=== PATIENT | male | born 1970 | race Caucasian/White ===

== ENCOUNTER → 2018-03-27 | Outpatient (CLI) | payer OTHER ==
--- NOTE | 2018-03-28 19:47 | US ---
EXAMINATION TYPE: US abdomen complete DATE OF EXAM: 03/27/2018 COMPARISON: NONE CLINICAL HISTORY: 47-year-old male R10.9 ABD PAIN. Bloating, abdominal pain, intermittent for 15 year s TECHNIQUE: Multiple sonographic images of the abdomen are obtained. FINDINGS: EXAM MEASUREMENTS: Liver Length: 11.7 cm Gallbladder Wall: 0.2 cm CBD: 0.3 cm Spleen: 11.6 cm Right Kidney: 10.6 x 5.4 x 4.8 cm Left Kidney: 11.0 x 5.2 x 4.5 cm Pancreas: Most of the pancreas is seen and shows no gross abnormality. Liver: Normal size and homogeneous appearance without focal lesion. Gallbladder: multiple non-mobile echogenic nodules measuring up to 7 mm. No abnormal gallbladder dis tention, wall thickening, or pericholecystic fluid. Evidence for sonographic Vegas's sign: no CBD: wnl Spleen: wnl Right Kidney: no evidence of hydronephrosis Left Kidney: no evidence of hydronephrosis Upper IVC: wnl Abd Aorta: wnl IMPRESSION: Multiple nonmobile echogenic nodules along the gallbladder wall measuring up to 7 mm. Suspected gallb ladder wall polyps. Six-month follow-up gallbladder ultrasound recommended.
== END | disposition home or self-care (01) ==
LOC: RADUSWWP 14:43
PROVIDERS: ATTEND Family Medicine
DX: K82.8 Other specified diseases of gallbladder (principal)
CPT/HCPCS: 76700

== ENCOUNTER → 2018-09-21 | Outpatient (CLI) | payer OTHER ==
--- NOTE | 2018-09-21 09:47 | US ---
EXAMINATION TYPE: US abdomen complete DATE OF EXAM: 09/21/2018 COMPARISON: US 2018 CLINICAL HISTORY: 48-year-old male R10.9 ABD Pain. Follow up from previous US TECHNIQUE: Multiple sonographic images of the abdomen were obtained. FINDINGS: EXAM MEASUREMENTS: Liver Length: 14.8 cm Gallbladder Wall: 0.2 cm CBD: 0.3 cm CHD: 0.3 cm Spleen: 10.1 cm Right Kidney: 10.2 x 5.4 x 4.9 cm Left Kidney: 11.5 x 4.9 x 6.0 cm Pancreas: wnl Liver: wnl Gallbladder: Multiple echogenic lesions seen adjacent to wall, nonvascular, largest. Along a junctio nal fold, two echogenic lesions seen with ring down artifact and twinkling artifact, largest measurin g - 0.3 cm. Evidence for sonographic Vegas's sign: neg CBD: wnl CHD: wnl Spleen: wnl Right Kidney: No hydronephrosis. Small extrarenal pelvis is suggested. Left Kidney: No hydronephrosis. Upper IVC: wnl Abd Aorta: wnl IMPRESSION: Multiple gallbladder wall polyps measuring up to 6 mm (versus 7 mm, previously). Some of these show r ingdown artifact suggesting concurrent adenomyomatosis. Continued follow-up can be performed at 6-12 month intervals.
== END | disposition home or self-care (01) ==
LOC: RADUSWWP 06:45
PROVIDERS: ATTEND Family Medicine
DX: K82.4 Cholesterolosis of gallbladder (principal)
CPT/HCPCS: 76700

== ENCOUNTER 2019-05-12 06:26 | Day surgery (SDC) | payer OTHER ==
[2019-05-10 13:28] VITALS: BMI 26.7
--- NOTE | 2019-05-11 19:32 | P.GSHP ---
History of Present Illness H&P Date: 05/11/19 Chief Complaint: chronic cholecystitis 48-year-old male was having some bowel discomfort and underwent an ultrasound in March 2018. Patient describes GI related symptoms for the last 15 years or so. The symptoms include bloating, abdominal discomfort, and frequent diarrhea. He was found to have a slightly elevated bilirubin at 1.0, rechecked and was normal. Ultrasound from March showed multiple nodules along the gallbladder wall measuring up to 7 mm in size. These were thought to represent polyps and six-month follow-up was advised. Recent follow-up ultrasound in September confirms what appeared to present numerous gallbladder polyps measuring up to 6 mm in siz e. Patient still having mild epigastric abdominal discomfort at times. Some radiation to the back. No nausea or vomiting. No rectal bleeding or melena. No change in the color of his skin urine or stool. Remainder of the patient's liver enzymes have been normal. Past Medical History Past Medical History: GERD/Reflux History of Any Multi-Drug Resistant Organisms: None Reported Additional Past Surgical History / Comment(s): eye muscle sx age 5, hemorrhoidectomy Past Anesthesia/Blood Transfusion Reactions: No Reported Reaction Smoking Status: Never smoker - Past Family History Mother Family Medical History: No Reported History Medications and Allergies Home Medications Medication Instructions Recorded Confirmed Type Omeprazole 40 mg PO HS 05/10/19 05/10/19 History Tamsulosin [Flomax] 0.4 mg PO HS 05/10/19 05/10/19 History Allergies Allergy/AdvReac Type Severity Reaction Status Date / Time No Known Allergies Allergy Verified 05/10/19 13:24 Surgical - Exam Physical exam: General: Well-developed, well-nourished HEENT: Normocephalic, sclerae nonicteric Abdomen: Nontender, nondistended Extremities: No edema Neuro: Alert and oriented Assessment and Plan (1) Chronic cholecystitis Narrative/Plan: 48-year-old male with suspected chronic cholecystitis. Workup thus far discussed in detail with the patient. Further diagnostics discussed as options. He decided to proceed with laparoscopic cholecystectomy at this time. Risks of bleeding, infection, trocar-related injury, bile leak, bile duct injury, retained common bile duct stone, conversion to an open procedure, and anesthesia-related complications were discussed. Patient understands and wishes to proceed. Status: Acute Code(s): K81.1 - CHRONIC CHOLECYSTITIS SNOMED Code(s): 208 24046
[~2019-05-12 06:26] MED LIST: DEXAMETHASONE SOD PHOSPHATE 10 MG/ML 1 ML VIAL IV ONE; HEPARIN SODIUM,PORCINE 5,000 UNIT/ML 1 ML VIAL SQ ONE; LACTATED RINGERS 1,000 ML IV SCH; LIDOCAINE 1% 20 ML VIAL (10MG/ML) FOR IV START INTRADERMA PRN; MIDAZOLAM 2 MG/2 ML VIAL IV PRN; ONDANSETRON 4 MG/2 ML VIAL IVP ONE; SCOPOLAMINE 1.5MG/72HR PATCH TRANSDERM ONE
[2019-05-12] MEDS ORDERED: DEXAMETHASONE SOD PHOS (MDV) 100 MG/10 ML VIAL ONE (07:35)
[2019-05-12] MEDS ORDERED: SUCCINYLCHOLINE CHLORIDE 100 MG/5 ML SYR IV ONE (07:35)
[2019-05-12] MEDS ORDERED: NEOSTIGMINE 1 MG/ML 10 ML VIAL ONE (07:35)
[2019-05-12] MEDS ORDERED: fentaNYL (PF) 50 MCG/ML 2 ML AMP ONE (07:35)
[2019-05-12] MEDS ORDERED: PROPOFOL 10 MG/ML 20 ML VIAL IV ONE (07:35)
[2019-05-12] MEDS ORDERED: LIDOCAINE 1% INJ 10MG/ML (20 ML MDV) ONE (07:35)
[2019-05-12] MEDS ORDERED: MIDAZOLAM 2 MG/2 ML VIAL ONE (07:35)
[2019-05-12] MEDS ORDERED: ROCURONIUM BROMIDE 10 MG/ML 10 ML VIAL IV ONE (07:35)
[2019-05-12] MEDS ORDERED: GLYCOPYRROLATE 0.2 MG/ML 2 ML VIAL ONE (07:35)
[2019-05-12] MEDS ORDERED: BUPIVACAIN-EPI 0.25%-1:200,000 30 ML VIAL SQ ONE (08:10)
[2019-05-12] MEDS ORDERED: LACTATED RINGERS 1,000 ML IV ONE ×2 (08:33)
[2019-05-12] MEDS ORDERED: NALOXONE 0.4 MG/ML 1 ML VIAL IV PRN (08:52)
[2019-05-12] MEDS ORDERED: HYDROcodone/APAP 5-325MG 1 EACH TAB PO PRN (08:52)
--- NOTE | 2019-05-12 08:54 | P.OP ---
Date of Procedure: 05/12/19 Procedure(s) Performed: PREOPERATIVE DIAGNOSIS: Chronic cholecystitis POSTOPERATIVE DIAGNOSIS: Same PROCEDURE: Laparoscopic cholecystectomy SURGEON: Madeline EBL: Minimal see anesthesia record ANESTHESIA: Gen. COMPLICATIONS: None OPERATIVE PROCEDURE: The patient was brought and placed on the operating room table in the supine position. The patient was placed under general anesthesia at that time. The abdomen was prepped and draped in the usual sterile fashion. A small vertical infraumbilical incision was made. The fascia was grasped with the Priscilla forceps. The fascia was retracted anteriorly. The Veress needle was advanced into the peritoneal cavity. The saline drop test was normal. Insufflation took place up to 15 mmHg. A 5 mm optical trocar was advanced and the peritoneal cavity. 2 additional 5 mm trochars were placed in the right upper quadrant under direct visualization. A 12 mm trocar was advanced into the epigastric incision site. The gallbladder was retracted superiorly and laterally. The peritoneum overlying the infundibulum was bluntly dissected. The patient's cystic duct was visualized. The junction between the cystic duct common and hepatic duct was identified. The cystic duct was then divided after placement of 3 12 mm clips on the patient's side and one on the specimen side. The cystic artery was identified and clipped as well. A small vessel was seen along the gallbladder fossa and clipped as well. The gallbladder was then removed from the liver bed using electrocautery. The gallbladder was then removed from the epigastric trocar site with an Endo Catch bag. The gallbladder fossa was irrigated with saline. There was no evidence of any bleeding or biliary drainage seen. The fascia at the 12 millimeter site was closed using a Andres-Uyen 0 Vicryl stitch. The trochars were then removed. The skin at all 4 sites was closed using a 4-0 Monocryl stitch. Skin glue was utilized on the incision sites. At the end of this procedure the sponge and needle counts were correct. The gallbladder was opened at the back table. Multiple small stones and sludge were seen. No definitive polyps were identified. Picture were taken and given to the family. DISPOSITION: Stable to the recovery room
[2019-05-12 09:03] VITALS: TEMP 98.2
[2019-05-12] MEDS ORDERED: KETOROLAC 30 MG/ML 1 ML VIAL IVP ONE (09:15)
[2019-05-12] MEDS: HYDROmorphone 0.5 MG/0.5 ML SYRINGE IVP PRN ×2 (09:16→09:31)
[2019-05-12 11:13] VITALS: BP 140/82; PULSE 95; RESP 20
== END 2019-05-12 11:27 | disposition home or self-care (01) ==
LOC: OR 06:26
PROVIDERS: ATTEND Surgery
DX: K81.1 Chronic cholecystitis (principal); K21.9 Gastro-esophageal reflux disease without esophagitis; Z98.890 Other specified postprocedural states; Z79.899 Other long term (current) drug therapy
CPT/HCPCS: 88304; 47562; J2250; J1644; J1100 ×2; J2710; J0690; J2405; J2001; J3010; J1885; J0330; J2704; J1170

== ENCOUNTER 2020-07-06 07:58 | Day surgery (SDC) | payer BC, OTHER ==
[2020-07-04 14:24] VITALS: BMI 26.7
[~2020-07-06 07:58] MED LIST changes: -DEXAMETHASONE SOD PHOSPHATE 10 MG/ML 1 ML VIAL IV ONE; -HEPARIN SODIUM,PORCINE 5,000 UNIT/ML 1 ML VIAL SQ ONE; +LIDOCAINE 1% (10MG/ML) FOR IV START INTRADERMA PRN; -LIDOCAINE 1% 20 ML VIAL (10MG/ML) FOR IV START INTRADERMA PRN; -MIDAZOLAM 2 MG/2 ML VIAL IV PRN; -ONDANSETRON 4 MG/2 ML VIAL IVP ONE; -SCOPOLAMINE 1.5MG/72HR PATCH TRANSDERM ONE
[2020-07-06 08:40] VITALS: RESP 16; TEMP 97
[2020-07-06] MEDS ORDERED: LIDOCAINE 1% INJ 10MG/ML (20 ML MDV) ONE (09:04)
[2020-07-06] MEDS ORDERED: PROPOFOL 10 MG/ML 20 ML VIAL IV ONE (09:04)
--- NOTE | 2020-07-06 09:47 | P.PCN ---
Date of Procedure: 07/06/20 Description of Procedure: BRIEF HISTORY: Patient is a 49-year-old male presenting for outpatient colonoscopy for a history of polyps. He reports last colonoscopy approximately 7 years ago at which time polyps were removed. No family history of colon cancer. No change in bowel habits. PROCEDURE PERFORMED: Colonoscopy with polypectomy. PREOPERATIVE DIAGNOSIS: History of colon polyps, patient reports last colonoscopy 7 years ago. ESTIMATED BLOOD LOSS: Minimal. IV sedation per Anesthesia. PROCEDURE: After informed consent was obtained, the patient, was brought into the endoscopy unit. IV sedation was administered by Anesthesia under continuous monitoring. Digital rectal examination was normal. Initially the Olympus CF-190 flexible video colonoscope was then inserted in the rectum, gradually advanced into the cecum without any difficulty. Careful examination was performed as the scope was gradually being withdrawn. Ileocecal valve and the appendiceal orifice were visualized and appeared normal. Prep was excellent. Mucosa of the cecum, ascending colon, transverse colon, descending colon, sigmoid colon, and rectum appeared normal. 2 small polyps measuring 3 mm in size removed from the splenic flexure with cold snare polypectomy. Retroflexion was performed in the rectum and no lesions were seen. The patient tolerated the procedure well. IMPRESSION: 2 small polyps removed with cold snare polypectomy from the splenic flexure. RECOMMENDATIONS: Findings of this examination were discussed with the patient. Okay to resume diet. Okay to resume medications. Await pathology from polypectomies. Recommend repeat colonoscopy in 7 years for colon polyps pending pathology from polypectomy.
[2020-07-06 10:00] VITALS: BP 114/64; PULSE 66
== END 2020-07-06 10:13 | disposition home or self-care (01) ==
LOC: ORWHC2ENDO 07:58
PROVIDERS: ATTEND Internal Medicine
DX: Z12.11 Encounter for screening for malignant neoplasm of colon (principal); K63.5 Polyp of colon; N42.9 Disorder of prostate, unspecified; K21.9 Gastro-esophageal reflux disease without esophagitis; Z86.010 Personal history of colon polyps; Z79.899 Other long term (current) drug therapy; Z98.890 Other specified postprocedural states; Z90.49 Acquired absence of other specified parts of digestive tract; Z85.820 Personal history of malignant melanoma of skin
CPT/HCPCS: 88305; 45385; J2001; J2704

== ENCOUNTER → 2023-09-11 | Outpatient (CLI) | payer BC ==
--- NOTE | 2023-09-11 13:19 | FL ---
EXAMINATION TYPE: FL UGI air w small bowel DATE OF EXAM: 09/11/2023 12:10 PM CLINICAL INDICATION:Male, 53 years old with history of R14.0 ABDOMINAL DISTENSION (GASEOUS); COMPARISON: None TECHNIQUE: The procedure was explained and patient history elicited. All patient questions were ans wered prior to start of procedure. A mining machinery assembler radiograph of the abdomen was also reviewed. Multiple flu oroscopic spot images of the esophagus, stomach and duodenum were obtained following ingestion of liq uid barium and EZ-gas crystals. After the completion of the upper gastrointestinal examination, a de tailed small bowel examination was performed. The patient was asked to ingest additional liquid richar um and incremental frontal abdominal radiographs were then taken until contrast was visualized in the cecum. Fluoroscopic time: 54 seconds Fluoroscopic images:0 Radiographs taken: 63 DAP: Not reported [id number] FINDINGS: Upper GI examination: The mining machinery assembler abdominal radiograph demonstrates a normal bowel gas pattern without dilated loops of small or large bowel. There is no evidence for organomegaly or pneumoperitoneum. No abnormal calcificati ons. The visualized osseous structures are intact. Upper quadrant course hysterectomy clips. The esophagus appears unremarkable without evidence of focal stricture, ulceration or abnormal outpou gary. Transient transverse bands are seen throughout the mid and lower esophagus. No hiatal hernia w as visualized. There was gastroesophageal reflux was seen when the patient was laying down. The stom ach and duodenum demonstrate a normal course and contour. There is no evidence of focal gastric or d uodenal ulceration, stricture, or abnormal outpouching. Small bowel mucosal folds are felt to be with in normal limits. Detailed small bowel examination: Contrast is seen extending from the duodenojejunal junction into the cecum after 2 hours 30 minutes, which is minimally longer than the expected time period. The small bowel follows normal distribution and contour without any evidence of extraluminal or intraluminal irregularity. There is no displace ment of bowel loops or extraluminal extravasation of contrast material. IMPRESSION: 1. Feline esophagus compatible with active gastrointestinal reflux. Reflux also visualized while rizwana ent was lying spine. Otherwise the upper gastrointestinal examination was within normal limits. 2. Degenerative small bowel with transit minimally longer than the expected time period.
== END | disposition home or self-care (01) ==
LOC: RADFLMAIN 07:25
PROVIDERS: ATTEND Internal Medicine Gastroenterology
DX: K21.9 Gastro-esophageal reflux disease without esophagitis (principal)
CPT/HCPCS: 74240; 74248